=== PATIENT | male | born 1970 | race Caucasian/White ===

== ENCOUNTER 2021-07-03 00:06 | Emergency (ER) | payer BC ==
[2021-07-03] MEDS ORDERED: Furosemide 20 MG Tab PO ONE (00:07)
[2021-07-03] MEDS ORDERED: Potassium Chloride 10 MEQ Tab.ER PO ONE (00:07)
[2021-07-03] MEDS ORDERED: Furosemide 20 MG/2 ML VIAL IVPUSH ONE (01:40)
[2021-07-03 02:15] LABS: ANION GAP 15.5 mEq/L (7-13); CHLORIDE,CL 103 mmol/L (98-107); SODIUM,NA 140 mmol/L (136-145)
[2021-07-03] MEDS ORDERED: Potassium Chloride 10 MEQ Tab.ER ONE (03:19)
[2021-07-03] MEDS ORDERED: Furosemide 20 MG Tab ONE (03:22)
== END 2021-07-03 03:40 | disposition home or self-care (01) ==
LOC: DL.ED 00:06
DX: R60.0 Localized edema (principal); Z72.0 Tobacco use
CPT/HCPCS: 36415; 80053; 83735; 83880; 85025; 85379; 96374; 99282; 99284; A9270; J1940